=== PATIENT | male | born 1955 | race Caucasian/White ===

== ENCOUNTER 2018-02-15 12:56 | Emergency (ER) | END 2018-02-15 14:56 | disposition home or self-care (01) ==

== ENCOUNTER 2019-01-27 21:12 | Observation (INO) | payer BC ==
[~2019-01-27] VITALS: Ht 167.6 cm; Wt 91.8 kg
[~2019-01-27 21:12] MED LIST: IBUP-1542 PO
[2019-01-27 21:28] VITALS: Ht 167.6 cm; Wt 91.8 kg
[2019-01-28] MEDS: LISINOPRIL 20 MG TAB PO SCH ×2 (01:54→08:08)
[2019-01-28] MEDS ORDERED: BISACODYL (EC) 5 MG TAB PO PRN (02:00)
[2019-01-28] MEDS ORDERED: NACL 0.9% 3 ML SYG IV SCH (02:00)
[2019-01-28] MEDS ORDERED: NITROGLYCERIN (SL) 0.4 MG TAB SL PRN (02:00)
[2019-01-28] MEDS ORDERED: ACETAMINOPHEN 325 MG TAB PO PRN (02:00)
[2019-01-28] MEDS ORDERED: DOCUSATE SODIUM 100 MG CAP PO PRN (02:00)
[2019-01-28] MEDS ORDERED: ONDANSETRON 4 MG INJ IV PRN (02:00)
--- NOTE | 2019-01-28 02:02 | ERD ---
ER Documentation Chief Complaint Chief Complaint high bp at home, c/o generalize body weakness/cp HPI 63-year-old male here with elevated blood pressure at home with complaints of chest pain generalized body weakness. Chest pain is mild to moderate intensity with no exacerbating alleviating factors. Mild associated shortness of breath. No other current issues. ROS All systems reviewed and are negative except as per history of present illness. Medications Home Meds Active Scripts Ibuprofen* (Motrin*) 600 Mg Tab, 600 MG PO Q6, #30 TAB Prov:VALENTINA DUNLAP PA-C 02/15/18 Reported Medications [None] No Conflict Check 06/26/16 Allergies Allergies: Coded Allergies: No Known Allergy (Unverified , 02/15/18) PMhx/Soc History of Surgery: Yes (COLONOSCOPY 10 YRS AGO) Anesthesia Reaction: No Hx Neurological Disorder: No Hx Respiratory Disorders: No Hx Cardiac Disorders: Yes (HTN) Hx Psychiatric Problems: No Hx Miscellaneous Medical Probl: No Hx Alcohol Use: Yes Hx Substance Use: No Hx Tobacco Use: Yes Smoking Status: Current every day smoker Physical Exam Vitals Vital Signs Date Temp Pulse Resp B/P (MAP) Pulse Ox O2 O2 Flow FiO2 Time Delivery Rate 01/27/19 74 14 174/92 99 Room Air 23:35 (119) 01/27/19 98.2 73 18 182/88 96 21:28 (119) Physical Exam Const: No acute distress Head: Atraumatic Eyes: Normal Conjunctiva ENT: Normal External Ears, Nose and Mouth. Neck: Full range of motion. No meningismus. Resp: Clear to auscultation bilaterally Cardio: Regular rate and rhythm, no murmurs Abd: Soft, non tender, non distended. Normal bowel sounds Skin: No petechiae or rashes Back: No midline or flank tenderness Ext: No cyanosis, or edema Neur: Awake and alert Psych: Normal Mood and Affect Result Diagram: 01/27/19 2344 01/27/19 2344 Results 24 hrs Laboratory Tests Test 01/27/19 23:44 White Blood Count 10.6 10^3/ul Red Blood Count 4.70 10^6/ul Hemoglobin 14.3 g/dl Hematocrit 42.2 % Mean Corpuscular Volume 89.8 fl Mean Corpuscular Hemoglobin 30.4 pg Mean Corpuscular Hemoglobin Concent 33.9 g/dl Red Cell Distribution Width 12.8 % Platelet Count 217 10^3/UL Mean Platelet Volume 10.6 fl Immature Granulocytes % 0.400 % Neutrophils % 59.7 % Lymphocytes % 28.8 % Monocytes % 8.7 % Eosinophils % 1.8 % Basophils % 0.6 % Nucleated Red Blood Cells % 0.0 /100WBC Immature Granulocytes # 0.040 10^3/ul Neutrophils # 6.3 10^3/ul Lymphocytes # 3.0 10^3/ul Monocytes # 0.9 10^3/ul Eosinophils # 0.2 10^3/ul Basophils # 0.1 10^3/ul Nucleated Red Blood Cells # 0.0 10^3/ul Prothrombin Time 12.8 Sec Prothrombin Time Ratio 1.0 INR International Normalized Ratio 0.95 Activated Partial Thromboplast Time 27.1 Sec Sodium Level 144 mmol/L Potassium Level 4.8 mmol/L Chloride Level 106 mmol/L Carbon Dioxide Level 29 mmol/L Anion Gap 9 Blood Urea Nitrogen 15 mg/dl Creatinine 0.84 mg/dl Est Glomerular Filtrat Rate mL/min > 60 mL/min Glucose Level 115 mg/dl Calcium Level 10.0 mg/dl Troponin I < 0.012 ng/ml Current Medications Medications Dose Sig/Lisa Start Time Status Last (Trade) Ordered Route PRN Stop Time Admin Dose Reason Admin IV Flush 3 ml PER 01/28/19 (NS 3 ml) PROTOCOL IV 02:00 Ondansetron 4 mg Q6H PRN 01/28/19 HCl (Zofran IV 02:00 Inj) NAUSEA/VOMITI NG 1 tab Q5M PRN 01/28/19 Nitroglycerin SL .CHEST 02:00 PAIN (Nitroglyceri n (Sl Tab) 0.4 Mg) 650 mg Q6H PRN 01/28/19 Acetaminophen PO .PAIN 1-3 02:00 (Tylenol OR TEMP Tab) Docusate 100 mg Q12H PRN 01/28/19 Sodium PO 02:00 (Colace) .CONSTIPATION Bisacodyl 5 mg DAILY PRN 01/28/19 (Dulcolax) PO 02:00 .CONSTIPATION Lisinopril 20 mg DAILY PO 01/28/19 01/28/19 (Zestril) 02:00 01:54 Procedures/MDM EKG: Rate/Rhythm: Normal Sinus Rhythm QRS, ST, T-waves: No changes consistent w/ acute ischemia Impression: No evidence of ischemia or arrhythmia Chest X-ray 1V Interpreted by me: Soft Tissue: No acute abnormalities Bones: No acute abnormalities Mediastinum/Cardiac Silhouette/Lungs: No acute abnormalities Patient's symptoms are concerning for cardiac cause will require inpatient workup and continuous monitoring. Further w/u for ischemia, arrhythmia, PE or dissection will be deferred to the inpatient team. Accepting Care Team: Current data and ongoing care discussed. Time: 1 AM Primary Provider: Dr. Herzog Consulting: XOXOXO Outstanding Data: none Departure Diagnosis: Primary Impression: Chest pain Chest pain type: unspecified Qualified Codes: R07.9 - Chest pain, unspecified Condition: Serious KIP REDMAN Jan 28, 2019 02:02
[2019-01-28] MEDS ORDERED: CHLO25TA2 PO (03:10)
[2019-01-28 05:45] VITALS: BP 157/72; PULSE 68; RESP 18
--- NOTE | 2019-01-28 05:49 | HP ---
Date/Time of Note Date/Time of Note DATE: 01/28/19 TIME: 05:44 Assessment/Plan VTE Prophylaxis SCD applied (from Nsg): Yes Pharmacological prophylaxis: NA/contraindicated Pharm contraindication: low risk/ambulating Lines/Catheters IV Catheter Type (from Nrsg): Saline Lock Assessment/Plan Hospital Course This is a 63-year-old male being admitted to the telemetry floor for observation for: #1 chest pain: Rule out ACS versus secondary to uncontrolled hypertension. Will trend cardiac enzymes x3, the first that was negative. Will check an echocardiogram. PRN nitro/morphine for pain. We will check hemoglobin A 1C, lipid panel, TSH. Consider cardiology consultation if indicated. #2 uncontrolled hypertension: Patient was recently started on antihypertensive medication however he did not like how the medication made him feel so he did not continue taking it. He does not recall the name. I will initiate the patient on lisinopril 20 mg p.o. daily and titrate as indicated. #3 obesity: We will check hemoglobin A 1C, lipid panel, TSH #4 DVT GI prophylaxis: SCDs, no GI prophylaxis indicated Further treatment strategy will be implemented as per clinical course. Result Diagram: 01/27/19 2344 01/27/19 2344 Results 24hrs Laboratory Tests Test 01/27/19 23:44 White Blood Count 10.6 Red Blood Count 4.70 Hemoglobin 14.3 Hematocrit 42.2 Mean Corpuscular Volume 89.8 Mean Corpuscular Hemoglobin 30.4 Mean Corpuscular Hemoglobin Concent 33.9 Red Cell Distribution Width 12.8 Platelet Count 217 Mean Platelet Volume 10.6 H Immature Granulocytes % 0.400 Neutrophils % 59.7 Lymphocytes % 28.8 Monocytes % 8.7 Eosinophils % 1.8 Basophils % 0.6 Nucleated Red Blood Cells % 0.0 Immature Granulocytes # 0.040 H Neutrophils # 6.3 Lymphocytes # 3.0 H Monocytes # 0.9 Eosinophils # 0.2 Basophils # 0.1 Nucleated Red Blood Cells # 0.0 Prothrombin Time 12.8 Prothrombin Time Ratio 1.0 INR International Normalized Ratio 0.95 Activated Partial Thromboplast Time 27.1 Sodium Level 144 Potassium Level 4.8 Chloride Level 106 Carbon Dioxide Level 29 Anion Gap 9 Blood Urea Nitrogen 15 Creatinine 0.84 Est Glomerular Filtrat Rate mL/min > 60 Glucose Level 115 Calcium Level 10.0 Troponin I < 0.012 HPI/ROS Admit Date/Time Admit Date/Time Jan 28, 2019 at 01:39 Hx of Present Illness Chief complaint: Chest pain, elevated blood pressure This is a 63-year-old male with a past medical history of hypertension who presented to the emergency department with 2 days of elevated blood pressure and chest pain. Patient presented with a family friend. Patient does report that for the last 2 days his blood pressures have been elevated. He was started recently on an antihypertensive medication however he did not like how the medication made him feel so he was not taking it. He started experiencing chest pain on and off for the last 2 days with radiation to the left shoulder. He denies any shortness of breath. Denies any fevers or nausea vomiting or diarrhea. He does not know the name of the blood pressure medication that he was on. He does have a PCP. Allergies: NKDA Medications: Unknown ROS Const: As per HPI Eyes : No pain discharge or redness or change in visual acuity ENT: No pain, sore throat, congestion, congestion, dysphagia or discharge Respiratory: No shortness of breath, cough, sputum, wheezing, or pleuritic pain Cardiovascular: As per HPI GI : no change in appetite, abdominal pain, nausea, vomiting, diarrhea, constipation, or change in the color his stool Genitourinary: No dysuria, hematuria, flank pain , discharge or CVA tenderness Musculoskeletal: No joint pain, back pain, neck pain, restricted range of motion in neck or joints Skin: No rash, bruising or hives Neuro: No headache, dizziness, syncope, seizure, focal weakness Endocrine: No polyuria, polydipsia, temperature intolerance Psych: No hallucination, depression, anxiety or suicidal ideation PMH/Family/Social Past Medical History Hypertension Medications Current Medications IV Flush (NS 3 ml) 3 ml PER PROTOCOL IV ; Start 01/28/19 at 02:00 Ondansetron HCl (Zofran Inj) 4 mg Q6H PRN IV NAUSEA/VOMITING; Start 01/28/19 at 02:00 Nitroglycerin (Nitroglycerin (Sl Tab) 0.4 Mg) 1 tab Q5M PRN SL .CHEST PAIN; Start 01/28/19 at 02:00 Acetaminophen (Tylenol Tab) 650 mg Q6H PRN PO .PAIN 1-3 OR TEMP; Start 01/28/19 at 02:00 Docusate Sodium (Colace) 100 mg Q12H PRN PO .CONSTIPATION; Start 01/28/19 at 0 2:00 Bisacodyl (Dulcolax) 5 mg DAILY PRN PO .CONSTIPATION; Start 01/28/19 at 02:00 Lisinopril (Zestril) 20 mg DAILY PO Last administered on 01/28/19at 01:54; Admin Dose 20 MG; Start 01/28/19 at 02:00 Coded Allergies: No Known Allergy (Unverified , 01/28/19) Past Surgical History Past Surgical Hx: no surgical history Family History Significant Family History: no pertinent family hx Social History Alcohol Use: none (Half a pack per day) Smoking Status: Current every day smoker Drug Use: none Exam/Review of Systems Vital Signs Vitals Vital Signs Date Temp Pulse Resp B/P (MAP) Pulse Ox O2 O2 Flow FiO2 Time Delivery Rate 01/28/19 70 15 138/86 95 Room Air 04:57 (103) 01/27/19 98.2 21:28 Exam Exam General: Patient is a pleasant male currently lying in bed in no acute distress HEENT: Atraumatic, normocephalic. The pupils are equal, round and reactive. Extraocular motor are intact Neck: Supple with full range of motion. No rigidity or meningismus Chest: Nontender Lungs: Clear to auscultation bilaterally no crackles rales or wheezing Heart: Normal S1-S2, Regular rhythm and rate. No murmur, S3, or S4 Abdomen: Obese, soft , nontender, nondistended , bowel sounds are present. No guarding no rebound tenderness , No masses or organomegaly. No costovertebral temporal angle mass Extremities: Normal to inspection, no edema no cyanosis Neurologic: Normal mental status, speech normal, cranial nerves II through XII are intact, motor and sensory are intact, no focal weakness Additional Comments Telemetry monitoring showing normal sinus rhythm at approximately 64 bpm EKG: Normal sinus rhythm, no ST or T wave abnormalities concerning for acute ischemiaPROCEDURE: CT Brain without contrast. CLINICAL INDICATION: Headache TECHNIQUE: A CT of the brain was performed utilizing axial imaging from the skull base through the vertex without IV contrast. Multiplanar reformatted images were made. Images were reviewed on a PACS workstation. CTDIvol: 38.77 mGy DLP: 713.51 mGycm DICOM images are available. One or more of the following dose reduction techniques were utilized: 1.) Automated exposure control 2.) Adjustment of the mA +/- kV according to patient's size 3.) Use of iterative reconstruction technique. COMPARISON: None FINDINGS: CALVARIUM: Regional bones are intact. SINUSES: Paranasal sinuses and mastoid air cells are clear. BRAIN: There is no evidence of intracranial hemorrhage. Prominence of ventricles and cisterns is normal for age. Guzman - white differentiation is preserved and there is no evidence of an acute or subacute territorial infarction. No intracranial mass or mass effect. IMPRESSION: Negative unenhanced head CT. RPTAT: [facility] Physician Jacklyn Date Time Electronically viewed and signed by Physician Jacklyn on 01/28/2019 01:23 xB/ CC: KIP REDMAN [id number] PROCEDURE: Single view chest. CLINICAL INDICATION: Pulmonary disorder not otherwise specified TECHNIQUE: Single view of the chest was obtained COMPARISON: None FINDINGS: No airspace consolidation, focal infiltrate or effusion. There is no pneumo thorax. Cardiac silhouette and mediastinal contours are unremarkable. Regional bones appear intact. IMPRESSION: No acute cardiopulmonary abnormality. RPTAT: [facility]ANSABB Physician Jacklyn Date Time Electronically viewed and signed by Physician Jacklyn on 01/28/2019 01:24 xB/ CC: KIP REDMAN [id number] NEEL POOL Jan 28, 2019 05:49
[2019-01-28 07:48] VITALS: BP 145/76; PULSE 73; RESP 22
[2019-01-28 11:51] VITALS: BP 146/78; PULSE 68; RESP 22
--- NOTE | 2019-01-28 13:44 | PN ---
Date/Time of Note Date/Time of Note DATE: 01/28/19 TIME: 13:40 Assessment/Plan VTE Prophylaxis Risk score (from Ns)>0 risk: 4 SCD applied (from [facility] [place]): Yes Pharmacological prophylaxis: NA/contraindicated Pharm contraindication: low risk/ambulating Lines/Catheters IV Catheter Type (from [facility]): Saline Lock Assessment/Plan Assessment/Plan 1. Chest pain, negative troponin, cardiology consult 2. HTN, better controlled 3. High TSH 5.42, repeat per PCP in office 4. DVT prophylaxis: SCDs Result Diagram: 01/28/1930 01/28/1930 Results 24hrs Laboratory Tests Test 01/27/19 23:44 01/28/19 06:30 01/28/19 10:56 White Blood Count 10.6 8.3 # Red Blood Count 4.70 4.57 L Hemoglobin 14.3 13.8 L Hematocrit 42.2 40.5 L Mean Corpuscular Volume 89.8 88.6 Mean Corpuscular Hemoglobin 30.4 30.2 Mean Corpuscular Hemoglobin Concent 33.9 34.1 Red Cell Distribution Width 12.8 12.7 Platelet Count 217 205 Mean Platelet Volume 10.6 H 10.4 Immature Granulocytes % 0.400 0.200 Neutrophils % 59.7 63.1 Lymphocytes % 28.8 25.5 Monocytes % 8.7 9.2 Eosinophils % 1.8 1.4 Basophils % 0.6 0.6 Nucleated Red Blood Cells % 0.0 0.0 Immature Granulocytes # 0.040 H 0.020 Neutrophils # 6.3 5.2 Lymphocytes # 3.0 H 2.1 Monocytes # 0.9 0.8 Eosinophils # 0.2 0.1 Basophils # 0.1 0.1 Nucleated Red Blood Cells # 0.0 0.0 Prothrombin Time 12.8 Prothrombin Time Ratio 1.0 INR International Normalized Ratio 0.95 Activated Partial Thromboplast Time 27.1 Sodium Level 144 143 Potassium Level 4.8 3.9 Chloride Level 106 108 Carbon Dioxide Level 29 26 Anion Gap 9 9 Blood Urea Nitrogen 15 12 Creatinine 0.84 0.68 Est Glomerular Filtrat Rate mL/min > 60 > 60 Glucose Level 115 106 Calcium Level 10.0 9.3 Troponin I < 0.012 < 0.012 < 0.012 Hemoglobin A1c 5.6 Magnesium Level 1.9 Total Bilirubin 1.0 Direct Bilirubin 0.00 Indirect Bilirubin 1.0 Aspartate Amino Transf (AST/SGOT) 36 Alanine Aminotransferase (ALT/SGPT) 52 Alkaline Phosphatase 43 Creatine Kinase 95 99 Creatine Kinase Index 1.3 1.0 Creatinine Kinase MB (Mass) 1.23 0.97 Total Protein 7.5 Albumin 4.1 Globulin 3.40 H Albumin/Globulin Ratio 1.20 Triglycerides Level 67 Cholesterol Level 128 LDL Cholesterol, Calculated 81 HDL Cholesterol 34 Cholesterol/HDL Ratio 3.7 Thyroid Stimulating Hormone (TSH) 5.420 H Subjective 24 Hr Interval Summary Free Text/Dictation intermittent left sided chest pain Exam/Review of Systems Exam Vitals Vital Signs Date Temp Pulse Resp B/P (MAP) Pulse Ox O2 O2 Flow FiO2 Time Delivery Rate 01/28/19 97.8 68 22 146/78 96 Room Air 11:51 (100) Constitutional: alert, oriented, well developed Psych: no complaints, nl mood/affect Head: normocephalic, atraumatic Eyes: nl conjunctiva, EOMI, nl lids, PERRL ENMT: nl external ears & nose, nl lips & teeth, nl nasal mucosa & septum Neck: supple, non-tender Respiratory: clear to auscultation, normal air movement; No congested cough, No crackles/rales, No diminished breath sounds, No intercostal retraction, No labored breathing, No respirations, No tactile fremitus, No wheezing, No other Cardiovascular: regular rate and rhythm, nl pulses; No bruits, No diastolic murmur, No edema, No gallop, No irregular rhythm, No jugular venous distention (JVD), No murmurs/extra sounds, No rub, No systolic murmur, No S3, No S4, No other Gastrointestinal: soft, nl liver, spleen, non-tender; No ascites, No bowel sounds, No distended, No firm, No hepatomegaly, No mass, No rebound or guarding, No splenomegaly, No surgical scars, No tender, No other Musculoskeletal: nl extremities to inspection Extremities: normal pulses; No calf tenderness, No cyanosis, No clubbing, No edema, No pitting pedal edema, No palpable cord, No tenderness, No other Neurological: [employer]IN RES[employer]ATION CL[employer] II-XII intact, nl mental status, nl speech, nl strength Skin: nl turgor Results Results 24hrs Laboratory Tests Test 01/27/19 23:44 01/28/19 06:30 01/28/19 10:56 White Blood Count 10.6 8.3 # Red Blood Count 4.70 4.57 L Hemoglobin 14.3 13.8 L Hematocrit 42.2 40.5 L Mean Corpuscular Volume 89.8 88.6 Mean Corpuscular Hemoglobin 30.4 30.2 Mean Corpuscular Hemoglobin Concent 33.9 34.1 Red Cell Distribution Width 12.8 12.7 Platelet Count 217 205 Mean Platelet Volume 10.6 H 10.4 Immature Granulocytes % 0.400 0.200 Neutrophils % 59.7 63.1 Lymphocytes % 28.8 25.5 Monocytes % 8.7 9.2 Eosinophils % 1.8 1.4 Basophils % 0.6 0.6 Nucleated Red Blood Cells % 0.0 0.0 Immature Granulocytes # 0.040 H 0.020 Neutrophils # 6.3 5.2 Lymphocytes # 3.0 H 2.1 Monocytes # 0.9 0.8 Eosinophils # 0.2 0.1 Basophils # 0.1 0.1 Nucleated Red Blood Cells # 0.0 0.0 Prothrombin Time 12.8 Prothrombin Time Ratio 1.0 INR International Normalized Ratio 0.95 Activated Partial Thromboplast Time 27.1 Sodium Level 144 143 Potassium Level 4.8 3.9 Chloride Level 106 108 Carbon Dioxide Level 29 26 Anion Gap 9 9 Blood Urea Nitrogen 15 12 Creatinine 0.84 0.68 Est Glomerular Filtrat Rate mL/min > 60 > 60 Glucose Level 115 106 Calcium Level 10.0 9.3 Troponin I < 0.012 < 0.012 < 0.012 Hemoglobin A1c 5.6 Magnesium Level 1.9 Total Bilirubin 1.0 Direct Bilirubin 0.00 Indirect Bilirubin 1.0 Aspartate Amino Transf (AST/SGOT) 36 Alanine Aminotransferase (ALT/SGPT) 52 Alkaline Phosphatase 43 Creatine Kinase 95 99 Creatine Kinase Index 1.3 1.0 Creatinine Kinase MB (Mass) 1.23 0.97 Total Protein 7.5 Albumin 4.1 Globulin 3.40 H Albumin/Globulin Ratio 1.20 Triglycerides Level 67 Cholesterol Level 128 LDL Cholesterol, Calculated 81 HDL Cholesterol 34 Cholesterol/HDL Ratio 3.7 Thyroid Stimulating Hormone (TSH) 5.420 H Medications Medication Current Medications IV Flush (NS 3 ml) 3 ml PER PROTOCOL IV ; Start 01/28/19 at 02:00 Ondansetron HCl (Zofran Inj) 4 mg Q6H PRN IV NAUSEA/VOMITING; Start 01/28/19 at 02:00 Nitroglycerin (Nitroglycerin (Sl Tab) 0.4 Mg) 1 tab Q5M PRN SL .CHEST PAIN; Start 01/28/19 at 02:00 Acetaminophen (Tylenol Tab) 650 mg Q6H PRN PO .PAIN 1-3 OR TEMP; Start 01/28/19 at 02:00 Docusate Sodium (Colace) 100 mg Q12H PRN PO .CONSTIPATION; Start 01/28/19 at 02:00 Bisacodyl (Dulcolax) 5 mg DAILY PRN PO .CONSTIPATION; Start 01/28/19 at 02:00 Lisinopril (Zestril) 20 mg DAILY PO Last administered on 01/28/19at 08:08; Admin Dose 20 MG; Start 01/28/19 at 02:00 SHAKIR SALTER MD Jan 28, 2019 13:44
--- NOTE | 2019-01-28 15:41 | RADRPT ---
Echocardiogram Report Patient Name: RAFAEL BERGERPatient ID: [id number] : 1955 (63y 8m)Study Date: 01/28/2019 8:54:07 AM Gender: Hildacession #: [id number] Tech: Peter Deng [facility] Location: [address] Ref.Physician: NEEL POOL Height(Cm): BSA: Weight(Kg): Quality: AdequateOrder Physician: NEEL POOL Account #: Procedures: Echocardiographic Report: Transthoracic echocardiogram with complete 2D, M-Mode, and doppler examination. Indications: Chest Pain. Measurements: 2D/M Mode Doppler Measurement Value Normal Range Measurement Value Normal Range LVIDd 2D 4.6 [ 4.2 - 5.8 ] cm AV Peak Aramis 1.2 [ 100.0 - 170.0 ] cm/sec LVIDs 2D 2.9 [ 2.5 - 4.0 ] cm AV Peak PG 6.0 [ 2.0 - 9.0 ] mmHg LVPWd 2D 1.0 [ 0.6 - 1.0 ] cm LVOT Peak Aramis 1.1 [ 70.0 - 110.0 ] cm/sec IVSd 2D 1.2 [ 0.6 - 1.0 ] cm LVOT Peak PG 5.0 [ 2.0 - 6.0 ] mmHg AoR Diam 2D 3.4 [ 2.6 - 3.4 ] cm MV E Peak Aramis 0.7 [ 60.0 - 130.0 ] cm/sec EDV 2D 96.3 [ 62.0 - 150.0 ] ml MV A Peak Aramis 1.0 [ 100.0 - 120.0 ] cm/sec ESV 2D 32.5 [ 21.0 - 61.0 ] ml MV E/A 0.7 [ 0.8 - 1.5 ] ratio EF 2D 66.3 [ 52.0 - 72.0 ] percent MV Decel Time 239 [ 104 - 258 ] msec LA Dimen 2D 3.7 [ 3.0 - 4.0 ] cm Lat E` Aramis 0.1 [ 10.0 - 15.0 ] cm/sec Lateral E/E` 8.0 [ 1.0 - 2.0 ] ratio Med E` Aramis 0.1 cm/sec MV E/A 0.7 [ 0.8 - 1.5 ] ratio TR Peak Aramis 2.2 [ 100.0 - 280.0 ] cm/sec TR Peak PG 19.0 mmHg RVSP 29.0 [ 10.0 - 36.0 ] mmHg Findings: Left Ventricle: Normal left ventricular systolic function. Normal left ventricular cavity size. Mild asymmetric septal hypertrophy. Ejection fraction is visually estimated at 65 %. Tissue Doppler/Mitral Doppler indices are consistent with impaired relaxation (Stage I diastolic dysfunction). Right Ventricle: Normal right ventricular size. Normal right ventricular systolic function. Left Atrium: The left atrium is normal in size. Right Atrium: The right atrium is normal in size. Mitral Valve: Mild mitral leaflet calcification. Mild mitral annular calcification. Trace mitral regurgitation. Aortic Valve: No significant aortic stenosis or insufficiency. Aortic cusps appear mildly calcified. Tricuspid Valve: Normal appearance of the tricuspid valve. The estimated Peak RVSP is 29 mmHg. There is mild tricuspid regurgitation. Pericardium: Normal pericardium with no significant pericardial effusion. Aorta: Normal aortic root. IVC: Normal size and normal respiratory collapse consistent with normal right atrial pressure. Conclusions: Normal left ventricular systolic function. Normal left ventricular cavity size. Mild asymmetric septal hypertrophy. Ejection fraction is visually estimated at 65 %. Tissue Doppler/Mitral Doppler indices are consistent with impaired relaxation (Stage I diastolic dysfunction). No significant aortic stenosis or insufficiency. Aortic cusps appear mildly calcified. Mild mitral leaflet calcification. Mild mitral annular calcification. Trace mitral regurgitation. Normal appearance of the tricuspid valve. The estimated Peak RVSP is 29 mmHg. There is mild tricuspid regurgitation. Electronically Signed By: Paul Cleveland 2019-01-28 15:39:55 PDT
[2019-01-28 15:54] VITALS: BP 116/73; PULSE 66; RESP 22
--- NOTE | 2019-01-28 17:20 | CONS ---
Assessment/Plan Assessment/Plan Hospital Course (Demo Recall) 63 yo with palpitations, atypical chest pain, and diaphoresis/anxiety, with uncontrolled hypertension. Workup negative for acute coronary syndrome Impression: Atypical chest pain Hypertension, now with better control Tobacco abuse Recommendations: No further cardiac workup needed Ideally he should be on 2 medications for bp, would suggest sending him home on amlodipine-benazepril combo pill Discussed importance of healthy eating, and of smoking cessation, for improving bp control and for future cardiovascular health Can observe overnight on amlodipine and if tolerates, d/c home in am on amlodipine-benazepril. Consultation Date/Type/Reason Admit Date/Time Jan 28, 2019 at 01:39 Date of Consultation: Jan 28, 2019 Type of Consult Cardiology Reason for Consultation chest discomfort and palpitations Requesting Provider: SHAKIR SALTER MD Date/Time of Note DATE: 01/28/19 TIME: 17:08 Hx of Present Illness 63 yo with h/o hypertension and tobacco use presents with 1 day of palpitations, chest discomfort and an episode of vomiting. He saw his pcp two weeks ago, who put him on medication for blood pressure, chlorthalidone. He took only one pill and stated after he took that pill he felt unwell so he stopped it. He has not seen his pcp again and did not get a replacement medication. However, yesterday he started feeling unwell, sweating, anxious, the sensation of his heart racing, and a mild discomfort of the chest. He also vomited once. As a result, he went to the ED. Since presentation to the hospital, he has had no further symptoms, and his bp has come down. Patient is normally quite active. 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 He smokes a pack a day. He does exercise by walking regularly for 20-30 minutes at a time. He admits his diet is less than ideal, when at work he will get food from food trucks and restaurants, does not eat much fruits or vegetables. Constitutional: improved, diaphoresis Eyes: no complaints ENT: no complaints Respiratory: no complaints Cardiovascular: chest pain, palpitations Gastrointestinal: vomiting Genitourinary: no complaints Musculoskeletal: no complaints Skin: no complaints Neurologic: no complaints Endocrine: no complaints Lymphatic: no complaints Psychological: no complaints Immunologic: no complaints Past Medical History Medical History: hypertension Home Meds Reported Medications Chlorthalidone* (Chlorthalidone*) 25 Mg Tablet, 25 MG PO DAILY for 30 Days, #60 01/28/19 Discontinued Reported Medications [None] No Conflict Check 06/26/16 Discontinued Scripts Ibuprofen* (Motrin*) 600 Mg Tab, 600 MG PO Q6, #30 TAB Prov:FABIVALENTINA PA-C 02/15/18 Medications Current Medications IV Flush (NS 3 ml) 3 ml PER PROTOCOL IV ; Start 01/28/19 at 02:00 Ondansetron HCl (Zofran Inj) 4 mg Q6H PRN IV NAUSEA/VOMITING; Start 01/28/19 at 02:00 Nitroglycerin (Nitroglycerin (Sl Tab) 0.4 Mg) 1 tab Q5M PRN SL .CHEST PAIN; Start 01/28/19 at 02:00 Acetaminophen (Tylenol Tab) 650 mg Q6H PRN PO .PAIN 1-3 OR TEMP; Start 01/28/19 at 02:00 Docusate Sodium (Colace) 100 mg Q12H PRN PO .CONSTIPATION; Start 01/28/19 at 02:00 Bisacodyl (Dulcolax) 5 mg DAILY PRN PO .CONSTIPATION; Start 01/28/19 at 02:00 Lisinopril (Zestril) 20 mg DAILY PO Last administered on 01/28/19at 08:08; Admin Dose 20 MG; Start 01/28/19 at 02:00 Allergies: Coded Allergies: No Known Allergy (Unverified , 01/28/19) Past Surgical History Past Surgical Hx: no surgical history Social History Alcohol Use: none (Half a pack per day) Smoking Status: Current every day smoker Drug Use: none Exam/Review of Systems Vital Signs Vitals Vital Signs Date Temp Pulse Resp B/P (MAP) Pulse Ox O2 O2 Flow FiO2 Time Delivery Rate 01/28/19 97.8 66 22 116/73 96 Room Air 15:54 (87) Exam Constitutional: alert, oriented, well developed Psych: nl mood/affect Head: normocephalic, atraumatic Eyes: nl conjunctiva, EOMI, nl lids, nl sclera ENMT: nl external ears & nose, nl lips & teeth, nl nasal mucosa & septum Neck: supple; No jvd, No bruits Respiratory: clear to auscultation, normal air movement Cardiovascular: regular rate and rhythm, nl pulses; No jugular venous distention (JVD), No murmurs/extra sounds Gastrointestinal: soft, nl liver, spleen, non-tender Musculoskeletal: nl extremities to inspection Extremities: normal pulses Neurological: nl mental status, nl speech Skin: nl turgor; No rash or lesions Labs Result Diagram: 01/28/19 0630 01/28/19 0630 Results 24hrs Laboratory Tests Test 01/27/19 23:44 01/28/19 06:30 01/28/19 10:56 White Blood Count 10.6 8.3 # Red Blood Count 4.70 4.57 L Hemoglobin 14.3 13.8 L Hematocrit 42.2 40.5 L Mean Corpuscular Volume 89.8 88.6 Mean Corpuscular Hemoglobin 30.4 30.2 Mean Corpuscular Hemoglobin Concent 33.9 34.1 Red Cell Distribution Width 12.8 12.7 Platelet Count 217 205 Mean Platelet Volume 10.6 H 10.4 Immature Granulocytes % 0.400 0.200 Neutrophils % 59.7 63.1 Lymphocytes % 28.8 25.5 Monocytes % 8.7 9.2 Eosinophils % 1.8 1.4 Basophils % 0.6 0.6 Nucleated Red Blood Cells % 0.0 0.0 Immature Granulocytes # 0.040 H 0.020 Neutrophils # 6.3 5.2 Lymphocytes # 3.0 H 2.1 Monocytes # 0.9 0.8 Eosinophils # 0.2 0.1 Basophils # 0.1 0.1 Nucleated Red Blood Cells # 0.0 0.0 Prothrombin Time 12.8 Prothrombin Time Ratio 1.0 INR International Normalized Ratio 0.95 Activated Partial Thromboplast Time 27.1 Sodium Level 144 143 Potassium Level 4.8 3.9 Chloride Level 106 108 Carbon Dioxide Level 29 26 Anion Gap 9 9 Blood Urea Nitrogen 15 12 Creatinine 0.84 0.68 Est Glomerular Filtrat Rate mL/min > 60 > 60 Glucose Level 115 106 Calcium Level 10.0 9.3 Troponin I < 0.012 < 0.012 < 0.012 Hemoglobin A1c 5.6 Magnesium Level 1.9 Total Bilirubin 1.0 Direct Bilirubin 0.00 Indirect Bilirubin 1.0 Aspartate Amino Transf (AST/SGOT) 36 Alanine Aminotransferase (ALT/SGPT) 52 Alkaline Phosphatase 43 Creatine Kinase 95 99 Creatine Kinase Index 1.3 1.0 Creatinine Kinase MB (Mass) 1.23 0.97 Total Protein 7.5 Albumin 4.1 Globulin 3.40 H Albumin/Globulin Ratio 1.20 Triglycerides Level 67 Cholesterol Level 128 LDL Cholesterol, Calculated 81 HDL Cholesterol 34 Cholesterol/HDL Ratio 3.7 Thyroid Stimulating Hormone (TSH) 5.420 H Imaging Imaging EKG from ED reviewed, NSR and is a normal ekg Echo shows normal LV systolic function and no significant abnormalities Medications Medications Current Medications IV Flush (NS 3 ml) 3 ml PER PROTOCOL IV ; Start 01/28/19 at 02:00 Ondansetron HCl (Zofran Inj) 4 mg Q6H PRN IV NAUSEA/VOMITING; Start 01/28/19 at 02:00 Nitroglycerin (Nitroglycerin (Sl Tab) 0.4 Mg) 1 tab Q5M PRN SL .CHEST PAIN; Start 01/28/19 at 02:00 Acetaminophen (Tylenol Tab) 650 mg Q6H PRN PO .PAIN 1-3 OR TEMP; Start 01/28/19 at 02:00 Docusate Sodium (Colace) 100 mg Q12H PRN PO .CONSTIPATION; Start 01/28/19 at 02:00 Bisacodyl (Dulcolax) 5 mg DAILY PRN PO .CONSTIPATION; Start 01/28/19 at 02:00 Lisinopril (Zestril) 20 mg DAILY PO Last administered on 01/28/19at 08:08; Admin Dose 20 MG; Start 01/28/19 at 02:00 MARGRET DORSEY Jan 28, 2019 17:19
[2019-01-28] MEDS: AMLODIPINE 2.5 MG TAB PO SCH (17:21)
[2019-01-28 20:00] VITALS: BP 130/72; PULSE 62; RESP 18
[2019-01-29] VITALS: BP 147/74; PULSE 73; RESP 18
[2019-01-29 04:00] VITALS: BP 129/71; PULSE 66; RESP 18
[2019-01-29 07:22] VITALS: BP 130/73; PULSE 65; RESP 15
[2019-01-29] MEDS: AMLODIPINE 2.5 MG TAB PO SCH (08:21)
[2019-01-29] MEDS: LISINOPRIL 20 MG TAB PO SCH (08:21)
[2019-01-29 13:23] VITALS: BP 115/57; PULSE 70; RESP 14
[2019-01-29] MEDS ORDERED: AMLO2.5T78 PO (16:38)
[2019-01-29] MEDS ORDERED: LISI-471 PO (16:38)
--- NOTE | 2019-01-29 16:43 | DS ---
Date/Time of Note Date/Time of Note DATE: 01/29/19 TIME: 16:39 Discharge Summary Admission/Discharge Info Admit Date/Time Jan 28, 2019 at 01:39 Discharge Date/Time Discharge Diagnosis 1. Chest pain, stypical, resolved 2. HTN, controlled 3. High TSH 5.42, repeat per PCP Patient Condition: Stable Hospital Course 63 yo with h/o hypertension and tobacco use presents with 1 day of palpitations, chest discomfort and an episode of vomiting. He saw his pcp two weeks ago, who put him on medication for blood pressure, chlorthalidone. He took only one pill and stated after he took that pill he felt unwell so he stopped it. He has not seen his pcp again and did not get a replacement medication. However, yesterday he started feeling unwell, sweating, anxious, the sensation of his heart racing, and a mild discomfort of the chest. He also vomited once. As a result, he went to the ED. Since presentation to the hospital, he has had no further symptoms, and his bp has come down. Patient is normally quite active. 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 He smokes a pack a day. He does exercise by walking regularly for 20-30 minutes at a time. He admits his diet is less than ideal, when at work he will get food from food trucks and restaurants, does not eat much fruits or vegetables. Troponin is negative. Chest pain is atypical, no further cardiac work up needed per cardiology. No chest pain today. Patient has HTN, blood pressure is better controlled with lisinopril and norvasc. He is instructed to follow up with PCP to adjust dosage. TSH is 5. 42, needs to be repeated per PCP. Home Meds Active Scripts Amlodipine Besylate* (Amlodipine Besylate*) 2.5 Mg Tablet, 2.5 MG PO DAILY for 30 Days, TAB Prov:SHAKIR SALTER MD 01/29/19 Lisinopril* (Lisinopril*) 20 Mg Tablet, 20 MG PO DAILY for 30 Days, TAB Prov:SHAKIR SALTER MD 01/29/19 Discontinued Reported Medications Chlorthalidone* (Chlorthalidone*) 25 Mg Tablet, 25 MG PO DAILY for 30 Days, #60 01/28/19 [None] No Conflict Check 06/26/16 Discontinued Scripts Ibuprofen* (Motrin*) 600 Mg Tab, 600 MG PO Q6, #30 TAB Prov:VALENTINA DUNLAP PA-C 02/15/18 Follow-up Plan PCP in one weeks to repeat TSH and adjust antihypertensives Primary Care Provider Care Physician No Primary Pending Labs Laboratory Tests Test 01/29/19 06:15 White Blood Count 8.2 10^3/ul (4.8-10.8) Red Blood Count 4.96 10^6/ul (4.70-6.10) Hemoglobin 14.8 g/dl (14.0-18.0) Hematocrit 44.6 % (42.0-52.0) Mean Corpuscular Volume 89.9 fl (82.0-101.0) Mean Corpuscular Hemoglobin 29.8 pg (29.0-33.0) Mean Corpuscular Hemoglobin Concent 33.2 g/dl (32.0-37.0) Red Cell Distribution Width 13.0 % (11.5-14.5) Platelet Count 219 10^3/UL (140-415) Mean Platelet Volume 11.0 fl (7.4-10.4) Immature Granulocytes % 0.400 % (0.001-0.429) Neutrophils % 52.1 % (39.0-77.0) Lymphocytes % 35.0 % (15.0-51.0) Monocytes % 9.7 % (0.0-11.0) Eosinophils % 2.3 % (0.0-7.0) Basophils % 0.5 % (0.0-2.0) Nucleated Red Blood Cells % 0.0 /100WBC (0.0-0.0) Immature Granulocytes # 0.030 10^3/ul (0.0-0.031) Neutrophils # 4.3 10^3/ul (1.6-7.5) Lymphocytes # 2.9 10^3/ul (0.8-2.9) Monocytes # 0.8 10^3/ul (0.3-0.9) Eosinophils # 0.2 10^3/ul (0.0-0.5) Basophils # 0.0 10^3/ul (0.0-0.1) Nucleated Red Blood Cells # 0.0 10^3/ul (0.0-0.0) Sodium Level 143 mmol/L (135-144) Potassium Level 4.3 mmol/L (3.5-5.1) Chloride Level 110 mmol/L (97-110) Carbon Dioxide Level 24 mmol/L (21-31) Anion Gap 9 (5-13) Blood Urea Nitrogen 15 mg/dl (7-20) Creatinine 0.75 mg/dl (0.61-1.24) Est Glomerular Filtrat Rate mL/min > 60 mL/min (>60) Glucose Level 103 mg/dl (70-220) Calcium Level 9.3 mg/dl (8.4-10.2) Total Bilirubin 0.8 mg/dl (0.2-1.3) Direct Bilirubin 0.00 mg/dl (0.00-0.20) Indirect Bilirubin 0.8 mg/dl (0-1.1) Aspartate Amino Transf (AST/SGOT) 42 IU/L (15-46) Alanine Aminotransferase (ALT/SGPT) 51 IU/L (13-69) Alkaline Phosphatase 47 IU/L (42-121) Total Protein 8.1 g/dl (6.1-8.1) Albumin 4.3 g/dl (3.3-4.9) Globulin 3.80 g/dl (1.3-3.2) Albumin/Globulin Ratio 1.13 SHAKIR SALTER MD Jan 29, 2019 16:43
[2019-01-29 16:56] VITALS: BP 120/68; PULSE 65; RESP 15
== END 2019-01-29 17:19 | disposition home or self-care (01) ==
LOC: E/R 21:12 → TEL 01-28 01:39
PROVIDERS: ADMIT Family Medicine; ATTEND Internal Medicine
DX: R07.89 Other chest pain (principal); I10 Essential (primary) hypertension; Z72.0 Tobacco use; E66.9 Obesity, unspecified; Z68.32 Body mass index [BMI] 32.0-32.9, adult; R51 Headache
CPT/HCPCS: 36415; 70450; 71045; 80048; 80053; 80061; 82306; 82550; 82553; 83036; 83735; 84443; 84484; 85025; 85610; 85730; 93005; 93306; Z7500; Z7502; Z7610; G0378